=== PATIENT | female | born 1980 | race Caucasian/White ===

== ENCOUNTER 2020-07-20 09:45 | Day surgery (SDC) | payer BC ==
[~2020-07-20 09:45] MED LIST: Lactated Ringers 1,000 ML IV ONE; Sensorcaine 0.25% 10 ML ONE
[2020-07-20] MEDS ORDERED: Lactated Ringers 1,000 ML IV ONE (10:13)
[2020-07-20] MEDS ORDERED: MEFOXIN 2 GM PREMIX** 2 GM/50 ML ML IV ONE (10:13)
[2020-07-20] MEDS ORDERED: Lactated Ringers 1,000 ML IV SCH (10:30)
[2020-07-20] MEDS ORDERED: Zemuron 100 MG/10 ML ONE (10:39)
[2020-07-20] MEDS ORDERED: DIPRIVAN 200 MG/20 ML IV ONE (10:39)
[2020-07-20] MEDS ORDERED: Versed 2 MG/2 ML Injection ONE (10:39)
[2020-07-20] MEDS ORDERED: SUBLIMAZE 250 MCG/5 ML ONE (10:39)
[2020-07-20] MEDS ORDERED: MEFOXIN 2 GM PREMIX** 2 GM/50 ML ML IV SCH (11:00)
--- NOTE | 2020-07-20 13:19 | HP ---
HISTORY: This is a patient who presents for cholecystectomy. The patient has chronic cholecystitis with biliary dyskinesia. HIDA scan is 27%. PAST MEDICAL/SURGICAL HISTORY: Includes tonsillectomy and adenoidectomy. MEDICATIONS: Vitamins, control. ALLERGIES: NKDA. SOCIAL HISTORY: Occasional tobacco, occasional alcohol. FAMILY HISTORY: Denies. PHYSICAL EXAMINATION: GENERAL: No acute distress. CVS: Regular rate and rhythm. PULMONARY: Nonlabored. ABDOMEN: Soft, mild tenderness to palpation right upper quadrant. No rebound. No guarding. EXTREMITIES: Normal. DIAGNOSES: Chronic cholecystitis with biliary dyskinesia. PLAN: Laparoscopic cholecystectomy possible open.
[2020-07-20] MEDS ORDERED: Decadron 4 MG INJ ONE ×2 (14:02)
[2020-07-20] MEDS ORDERED: BRIDION 200MG/2ML IV ONE (15:05)
[2020-07-20] MEDS ORDERED: Zofran 4 MG/2 ML VIAL ONE (15:05)
[2020-07-20] MEDS ORDERED: BENADRYL 50 MG/ML ONE (15:08)
[2020-07-20] MEDS ORDERED: TORAdol 30 mg Injection ONE (15:56)
[2020-07-20] MEDS ORDERED: SUBLIMAZE 100 MCG/2 ML ONE (16:05)
[2020-07-20 16:38] VITALS: O2SAT 98
[2020-07-20 17:24] VITALS: BP 134/73; PULSE 70
--- NOTE | 2020-07-21 10:20 | OP ---
PROCEDURE DATE/TIME: 07/20/2020 1347 PREOPERATIVE DIAGNOSIS: Chronic cholecystitis with biliary dyskinesia. POSTOPERATIVE DIAGNOSES: 1) Chronic cholecystitis with biliary dyskinesia. 2) Umbilical hernia. PROCEDURES: 1) Laparoscopic cholecystectomy. 2) Laparoscopic umbilical hernia repair without mesh. PROCEDURE PERFORMED BY: Radha Poe M.D. COMPLICATIONS: None. ESTIMATED BLOOD LOSS: Less than 10 cc. ANESTHESIA: General. SPECIMENS: 1) Hernia contents. 2) Gallbladder. HISTORY: This is a patient who presents for laparoscopic cholecystectomy. All risks, benefits, alternatives of procedure had been discussed with the patient. H&P and consent were signed and verified with the patient in the preoperative area. Any remaining questions answered. DESCRIPTION OF PROCEDURE: She was then brought into the operative suite. Anesthesia induced. Prepped and draped in the usual sterile fashion. A complete time out performed. An orogastric tube inserted. Stomach desufflated. During this time her antibiotics have run in. She had two hives on her abdomen. There was suspicion for the hives is an allergy to the Mefoxin and so we will list this on her allergy sheet and of note I did discuss this the patient postoperatively so that she would know and be aware for future procedures. Vitals were always stable. No other issues and no hives anywhere else. After this, we then made our incision in the left upper quadrant. Veress needle was used to access the abdomen with no issues. Good water drop test. The abdomen was very easily insufflated. A 5 mm optical port placed under direct visualization with no issues. We then very clearly identified an umbilical hernia this was slightly bubbled up and I made an incision at the umbilical hernia on the lateral aspect to avoid her belly button piercing and then dissected down to the hernia site. I placed an 11 port through this site. The hernia itself looked probably approximately 1 cm in size. It was placed under visualization and we placed two more 5 ports in the right upper quadrant. Again these placed under direct visualization as well. The gallbladder was identified. It was slightly distended. It was grasped, retracted cephalad and laterally. All adhesions taken down. Cystic duct and cystic artery clearly identified. After this we clipped and cut these and carefully removed the gallbladder off the liver bed. There was a very small arteriole branch up at the dome of the gallbladder that was also clipped. Both the cystic artery and this branch were very small. We then removed the gallbladder through the umbilical port site. Once this was completed I irrigated and inspected and there were no issues. I then closed the umbilical hernia site with figure-of-8, 0 Vicryl laparoscopic suture. I also used handheld Bovie cautery to dissect the incarcerated preperitoneal fat from here and this was sent to pathology as well as the gallbladder was sent to pathology. We then desufflated the abdomen, removed the remaining side ports. Everything hemostatic. Clips in good position. No issues identified. Closed with buried 4-0 Monocryl, Steri-Strips and sterile dressing. The patient tolerated the procedure very well. No immediate complications. She is going to be following up with me as an outpatient and I have discussed all over instructions and findings with her family as well as her postoperatively.
== END 2020-07-20 17:26 | disposition home or self-care (01) ==
LOC: SDC 09:45
PROVIDERS: ATTEND Surgery
DX: K81.1 Chronic cholecystitis (principal); K82.8 Other specified diseases of gallbladder; K42.9 Umbilical hernia without obstruction or gangrene
CPT/HCPCS: 84703; J0694; J1100; J1200; J1885; J2250; J2405; J2704; J3010

== ENCOUNTER 2021-01-18 09:07 | Day surgery (SDC) | payer BC ==
[~2021-01-18 09:07] MED LIST changes: +Lactated Ringers 1,000 ML IV SCH; -Sensorcaine 0.25% 10 ML ONE
[2021-01-18] MEDS ORDERED: Versed 2 MG/2 ML Injection ONE (10:45)
[2021-01-18] MEDS ORDERED: DIPRIVAN 200 MG/20 ML IV ONE (10:45)
[2021-01-18 11:52] VITALS: O2SAT 98
[2021-01-18 12:03] VITALS: BP 109/64; PULSE 62
--- NOTE | 2021-01-22 11:16 | HP ---
HISTORY OF PRESENT ILLNESS: This is a 40 year-old female who presents for EGD. Please see my written H&P for further details. She has had recurrent epigastric pain, bloating. PAST MEDICAL/SURGICAL HISTORY: Cholecystectomy, tonsillectomy, adenoidectomy, reflux disease, anxiety. MEDICATIONS: Spironolactone, vitamins. ALLERGIES: NKDA. SOCIAL HISTORY: Positive alcohol use occasionally. Tobacco negative. FAMILY HISTORY: Negative. PHYSICAL EXAMINATION: GENERAL: No acute distress. CVS: Regular rate and rhythm. PULMONARY: Nonlabored. ABDOMEN: Soft, mild tenderness to palpation epigastric area. No rebound. No guarding. EXTREMITIES: Normal. DIAGNOSIS: Recurrent epigastric pain, bloating. PLAN: EGD.
--- NOTE | 2021-01-22 11:27 | OP ---
PROCEDURE DATE/TIME: 01/18/2021 1044 PREOPERATIVE DIAGNOSIS: Epigastric pain, bloating. POSTOPERATIVE DIAGNOSES: 1) Very small hiatal hernia. 2) Trace gastritis. 3) Normal duodenum. PROCEDURE: EGD with biopsies. PROCEDURE PERFORMED BY: Radha Poe M.D. ESTIMATED BLOOD LOSS: Minimal. ANESTHESIA: MAC. COMPLICATIONS: None. SPECIMEN: Antral biopsy; rule out Helicobacter pylori. PROCEDURE DETAILS: This is a patient who presents for EGD. Risks, benefits, alternatives, H&P reviewed and confirmed. She is having epigastric pain as well as some bloating. DESCRIPTION OF PROCEDURE: The patient was placed in the left lateral decubitus position. A complete time out performed. The scope was then inserted gently advanced from the oropharynx down to the esophagus, stomach and duodenum. The duodenum appeared normal. The scope was carefully withdrawn back to the stomach. The patient had some trace gastritis with some erythematous changes throughout the gastric body patchy and in the antrum. I did take a gastric antral biopsy to rule out Helicobacter pylori disease and sent this to pathology. The site was hemostatic. On retroflex view she has a very subtle small hiatal hernia this was not as obvious during her last EGD but she does appear to have a subtle weakness here. The scope is then carefully withdrawn. There is no sign of any Loyola's disease. The remainder of the esophagus looked normal and the scope was completely removed. The patient tolerated the procedure well. There were no immediate complications. On her prior EGD she did not have celiac disease. She did not have Loyola's. I did rebiopsy her based on her symptoms for Loyola's disease and we will see what that shows. She is going to continue her antacid medicine as we have prescribed and she will follow up with me in the office to discuss these results and her symptoms and at that point we will determine whether she needs further testing.
== END 2021-01-18 12:05 | disposition home or self-care (01) ==
LOC: SDC 09:07
PROVIDERS: ATTEND Surgery
DX: K44.9 Diaphragmatic hernia without obstruction or gangrene (principal); K29.70 Gastritis, unspecified, without bleeding; R10.13 Epigastric pain; R14.0 Abdominal distension (gaseous)
CPT/HCPCS: 84703; 88305; J2250; J2704

== ENCOUNTER 2022-03-09 15:36 | Day surgery (SDC) | payer BC ==
[2022-03-09] MEDS ORDERED: Depo-Medrol 40 MG/ML IM ONE (15:37)
[2022-03-09] MEDS ORDERED: XYLOCAINE-MPF 1% 5ML SDV IJ ONE (15:37)
[2022-03-09] MEDS ORDERED: Sodium Chloride 0.9(Preservative Free) 10 ML IJ ONE (15:37)
[2022-03-09] MEDS ORDERED: Marcaine Mpf 0.5% Vial 30 Ml IJ ONE (15:37)
--- NOTE | 2022-03-10 18:33 | XRAY ---
33 seconds fluoroscopy time in surgery for left L5-S1 transforaminal ROJELIO.
--- NOTE | 2022-03-10 18:34 | XRAY ---
9 seconds fluoroscopy time in surgery for injection of the left SI joint.
--- NOTE | 2022-03-11 21:51 | XRAY ---
Indication: Left L5-S1 Transforaminal ROJELIO. Intraoperative fluoroscopy provided for 33 seconds. 4 digital spot images submitted for interpretation demonstrates posterior needle tips projecting over the expected left L5 and S1 nerve roots. Small amounts of contrast injected for needle tip placement. Correlate with intraoperative findings/report.
--- NOTE | 2022-03-11 21:51 | XRAY ---
Indication: Left SI joint injection. Intraoperative fluoroscopy provided for 9 seconds. 2 digital spot images submitted for interpretation demonstrates posterior needle tips projecting over the inferior left sacroiliac joint. Correlate with intraoperative findings/report.
== END 2022-03-09 18:24 | disposition home or self-care (01) ==
LOC: SDC-PAIN 15:36
PROVIDERS: ATTEND Psychiatry & Neurology Pain Medicine
DX: M46.1 Sacroiliitis, not elsewhere classified (principal); M54.16 Radiculopathy, lumbar region; Z79.899 Other long term (current) drug therapy
CPT/HCPCS: 27096; 64483; 64484; 72100; 72170; 77002; 77003; 81025; J1030; Q9966; G0260

== ENCOUNTER 2022-04-27 12:48 | Day surgery (SDC) | payer BC ==
[2022-04-27] MEDS ORDERED: Depo-Medrol 40 MG/ML IM ONE (12:49)
[2022-04-27] MEDS ORDERED: Marcaine Mpf 0.5% Vial 30 Ml IJ ONE (12:49)
[2022-04-27] MEDS ORDERED: XYLOCAINE-MPF 1% 5ML SDV IJ ONE (12:49)
[2022-04-27] MEDS ORDERED: Sodium Chloride 0.9(Preservative Free) 10 ML IJ ONE (12:49)
--- NOTE | 2022-04-27 16:40 | XRAY ---
Indication: Left SI joint and caudal ROJELIO. Intraoperative fluoroscopy provided for 28 seconds. 4 digital spot image obtained prone submitted for interpretation demonstrates posterior needle tip projecting over the inferior left SI joint. Second posterior caudal needle tip projects mid sacrum with small amount of contrast injected for needle tip placement. Correlate with intraoperative findings/report.
--- NOTE | 2022-04-28 09:20 | XRAY ---
28 seconds fluoroscopy time in surgery for caudal ROJELIO and left SI joint injection.
== END 2022-04-27 14:50 | disposition home or self-care (01) ==
LOC: SDC-PAIN 12:48
PROVIDERS: ATTEND Psychiatry & Neurology Pain Medicine
DX: M46.1 Sacroiliitis, not elsewhere classified (principal); M54.16 Radiculopathy, lumbar region; Z79.899 Other long term (current) drug therapy
CPT/HCPCS: 27096; 62323; 72220; 77003; 81025; J1030; Q9966; G0260